=== PATIENT | male | born 1995 | race Caucasian/White ===

== ENCOUNTER 2019-06-02 11:59 | Emergency (ER) | payer OTHER ==
[2019-06-02 12:06] VITALS: BP 126/76; PULSE 82; TEMP 98; BMI 24.3
[2019-06-02 13:07] LABS: BASO % 0.5 % (0-2.0); HEMATOCRIT 41.8 % (35.4-49); HEMOGLOBIN 14.4 GM/dL (11.7-16.9); LYMPH % 23.4 % (8-40); MCH 29.5 pg (25.7-33.7); MCHC 34.3 g/dl (32.0-35.9); MEAN PLT VOLUME 8.3 fl (7.5-11.1); MONO % 8.2 % (3.8-10.2); NEUT % 62.9 % (42.8-82.8); PLATELET COUNT 262 K/MM3 (134-434); RBC 4.87 M/mm3 (4.00-5.60); RDW 13.8 % (11.9-15.9); WHITE BLOOD COUNT 9.2 K/mm3 (4.0-10.0)
--- NOTE | 2019-06-02 13:13 | PDOC ---
History of Present Illness - General Chief Complaint: Pain, Acute Stated Complaint: ABD PAIN Time Seen by Provider: 06/02/19 12:09 History Source: Patient - History of Present Illness Timing/Duration: reports: intermittent Quality: reports: moderate Past History - Past Medical History Allergies/Adverse Reactions: Allergies Allergy/AdvReac Type Severity Reaction Status Date / Time No Known Allergies Allergy Verified 06/02/19 12:06 COPD: No - Immunization History Immunization Up to Date: Yes - Suicide/Smoking/Psychosocial Hx Smoking History: Never smoked Have you smoked in the past 12 months: No Information on smoking cessation initiated: No Review of Systems - Review of Systems Constitutional: No: Chills, Fever ABD/GI: Yes: Abdominal cramping. No: Blood Streaked Bowels, Constipated, Diarrhea, Nausea, Rectal Bleeding, Vomiting, Tarry Stools : No: Dysuria, Flank Pain, Hematuria, Testicular Mass, Testicular Swelling, Lesions, Testicular Pain *Physical Exam - Vital Signs Last Vital Signs Temp Pulse Resp BP Pulse Ox 98.0 F 82 16 126/76 100 06/02/19 12:03 06/02/19 12:03 06/02/19 12:03 06/02/19 12:03 06/02/19 12:03 ED Treatment Course - LABORATORY CBC & Chemistry Diagram: 06/02/19 12:40 06/02/19 12:40 - RADIOLOGY Radiology Studies Ordered: Category Date Time Status ABDOMEN & PELVIS CT WITH CONTR [CT] Stat CT Scan 06/02/19 12:23 Ordered Medical Decision Making - Medical Decision Making 06/02/19 13:10 23-year-old male, denies any past medical history, here w/ RLQ pain. Patient initially developed pain 1 month ago and states he was seen in an outside ER 2 weeks ago with negative labs and CT. States pain persisted and was seen by his primary doctor this a.m., who referred him back to the ER today. Patient denies any nausea, vomiting, fever, chills, change in bowel movements testicular pain, swelling or penile discharge See exam Persistent RLQ pain Etiology unclear given duration Neg w/u 2 weeks ago at OSH Stable but very ttp to RLQ -will labs and re-image given severity of pain 06/02/19 16:[address] neg. Pt remained stable and well berna here and reports no pain at this time. Will dc w/ continued PMD f/u *DC/Admit/Observation/Transfer Diagnosis at time of Disposition: Abdominal pain Qualifiers: Abdominal location: right lower quadrant Qualified Code(s): R10.31 - Right lower quadrant pain - Discharge Dispostion Disposition: HOME Condition at time of disposition: Good - Referrals Referrals: Ilir Dawson MD [Primary Care Provider] - - Patient Instructions Printed Discharge Instructions: DI for Abdominal Pain-Adult Additional Instructions: The cause of your abdominal pain is unclear as your labs and CAT scan were normal here. Please continue to follow-up with your PMD Print Language: [place] - Post Discharge Activity
--- NOTE | 2019-06-02 13:21 | PDOC ---
*Physical Exam - Vital Signs Last Vital Signs Temp Pulse Resp BP Pulse Ox 98.0 F 82 16 126/76 100 06/02/19 12:03 06/02/19 12:03 06/02/19 12:03 06/02/19 12:03 06/02/19 12:03 ED Treatment Course - LABORATORY CBC & Chemistry Diagram: 06/02/19 12:40 06/02/19 12:40 Medical Decision Making - Medical Decision Making 06/02/19 13:20 23 yo M presenting to the ER with a complaint of RLQ pain No fevers or chills No vomiting Pain began 1 month ago Was seen at an OSH where work up is negative Denies any nausea, vomiting, fever, chills, change in bowel movements testicular pain, swelling or penile discharge Labs CT ReAssess CT- no signs of acute intra abdominal pathology Will discharge to home *DC/Admit/Observation/Transfer Diagnosis at time of Disposition: Abdominal pain - Discharge Dispostion Disposition: HOME Condition at time of disposition: Good - Referrals Referrals: Ilir Dawson MD [Primary Care Provider] - - Patient Instructions Printed Discharge Instructions: DI for Abdominal Pain-Adult Additional Instructions: The cause of your abdominal pain is unclear as your labs and CAT scan were normal here. Please continue to follow-up with your PMD Print Language: [place]AN[place] - Post Discharge Activity
[2019-06-02 13:31] LABS: BILIRUBIN,TOTAL 0.3 mg/dL (0.2-1); BLOOD UREA NITROGEN 15.2 mg/dL (7-18); CREATININE 0.7 mg/dL (0.55-1.3); POTASSIUM 4.1 mmol/L (3.5-5.1)
[2019-06-02 13:36] LABS: PH,URINE 7.5 (5.0-8.0); URINE APPEARANCE CLOUDY; URINE BILIRUBIN NEGATIVE (NEGATIVE); URINE COLOR YELLOW; URINE GLUCOSE (UA) NEGATIVE (NEGATIVE); URINE KETONE NEGATIVE (NEGATIVE); URINE LEUK ESTERASE NEGATIVE (NEGATIVE); URINE NITRITE NEGATIVE (NEGATIVE); URINE PROTEIN NEGATIVE (NEGATIVE)
== END 2019-06-02 16:21 | disposition home or self-care (01) ==
LOC: JER 11:59
DX: R10.31 Right lower quadrant pain (principal)
CPT/HCPCS: 36415; 74177-TC; 80053; 81003; 85025; 99282-25